=== PATIENT | male | born 1995 | race Caucasian/White ===

== ENCOUNTER 2019-10-07 01:27 | Emergency (ER) | payer SELFPAY ==
[~2019-10-07] VITALS: Ht 165.1 cm; Wt 55.4 kg
[2019-10-07 01:50] VITALS: Ht 165.1 cm; Wt 55.4 kg
[2019-10-07 04:35] VITALS: BP 121/82
[2019-10-07 05:07] LABS: AMPHETAMINE QUAL UR POSITIVE (See below)
== END 2019-10-07 04:35 | disposition home or self-care (01) ==
LOC: ED 01:27
PROVIDERS: Emergency Medicine
DX: R07.89 Other chest pain (principal); F19.10 Other psychoactive substance abuse, uncomplicated; F17.210 Nicotine dependence, cigarettes, uncomplicated; Z71.6 Tobacco abuse counseling
CPT/HCPCS: 99406; J1885; Q0092